=== PATIENT | female | born 1975 | race African-American/Black ===

== ENCOUNTER 2025-08-06 08:44 | Emergency (ER) | payer OTHER ==
[~2025-08-06] VITALS: Ht 170.2 cm; Wt 91.0 kg
[2025-08-06 08:53] VITALS: O2SAT 98
[2025-08-06] MEDS: METHOCARBAMOL 500MG TABLET PO ONE (09:52)
[2025-08-06] MEDS: ACETAMINOPHEN 500MG TABLET PO ONE (09:52)
[2025-08-06] MEDS: LIDOCAINE 5% PATCH TOP SCH (09:53)
[2025-08-06] MEDS ORDERED: LIDO-53 TP (10:27)
[2025-08-06] MEDS ORDERED: METH-653 MT (10:27)
[2025-08-06 10:47] VITALS: BP 122/80; PULSE 60; RESP 16; TEMP 36.7; O2SAT 100
== END 2025-08-06 10:48 | disposition home or self-care (01) ==
LOC: ER 08:44
DX: M54.2 Cervicalgia (principal); M79.10 Myalgia, unspecified site
CPT/HCPCS: 99284